=== PATIENT | female | born 1950 | race Caucasian/White ===

== ENCOUNTER 2016-06-20 10:57 | Outpatient (CLI) | payer MEDICARE, OTHER | END 2016-06-20 10:58 | disposition home or self-care (01) | DX: G47.33 Obstructive sleep apnea (adult) (pediatric) (principal) | CPT/HCPCS: 99214; G0463 ==

== ENCOUNTER 2016-08-04 13:16 | Outpatient (CLI) | payer MEDICARE, OTHER | END 2016-08-04 13:17 | disposition home or self-care (01) | DX: G47.33 Obstructive sleep apnea (adult) (pediatric) (principal) | CPT/HCPCS: 99214; G0463 ==

== ENCOUNTER 2016-08-11 13:44 | Outpatient (CLI) | payer MEDICARE, OTHER | END 2016-08-11 13:45 | disposition home or self-care (01) | DX: Z13.820 Encounter for screening for osteoporosis (principal); N95.9 Unspecified menopausal and perimenopausal disorder ==

== ENCOUNTER 2017-03-24 10:44 | Outpatient (CLI) | payer MEDICARE, OTHER ==
--- NOTE | 2017-03-24 12:42 | CT Report ---
CT CERVICAL SPINE WITHOUT CONTRAST: 03/24/2017 CLINICAL INDICATION: Neck pain, radicular symptoms. TECHNIQUE: Axial CT images of the cervical spine were obtained without contrast. Sagittal and coron al reconstructions were performed. In accordance with CT protocol optimization, one or more of the following dose reduction techniques w ere utilized for this exam: automated exposure control, adjustment of mA and/or KV based on patient size, or use of iterative reconstructive technique. FINDINGS: Image quality is degraded by motion and body habitus. The cervical vertebral bodies demon strate normal height and alignment. Extensive degenerative disc and facet disease is present. The C2-3 and C3-4 discs are unremarkable. At C4-5, there is mild disc-osteophyte, without significant spinal or foraminal narrowing. At C5-6, there is mild disc-osteophyte and uncovertebral osteophytes, producing left worse than right osseous neural foraminal narrowing. No significant spinal stenosis results. At C6-7, there is mild disc-osteophyte and uncovertebral osteophytes, producing bilateral foraminal n arrowing. No significant spinal stenosis. The C7-T1 disc is unremarkable. IMPRESSION: DEGENERATIVE CHANGES, PRODUCING OSSEOUS NEURAL FORAMINAL NARROWING AT C5-6 AND C6-7. JOB #: [id number] EXT JOB #:[id number]
--- NOTE | 2017-03-24 13:55 | XRAY Report ---
TWO VIEW CHEST: 03/24/2017 CLINICAL INDICATION: Shortness of breath, cough. COMPARISON: 12/17/2010. FINDINGS: Frontal and lateral views of the chest demonstrate an enlarged cardiac silhouette. The helga gs are clear. No effusion or pneumothorax is present. IMPRESSION: CARDIOMEGALY, BUT NO EVIDENCE OF ACUTE CARDIOPULMONARY DISEASE. JOB #: [id number] EXT JOB #:[id number]
== END 2017-03-24 10:45 | disposition home or self-care (01) ==
LOC: DI 10:44
PROVIDERS: ATTEND Physician Assistant
DX: R06.02 Shortness of breath (principal); M47.892 Other spondylosis, cervical region
CPT/HCPCS: 71020; 72125

== ENCOUNTER 2017-09-21 13:24 | Outpatient (CLI) | payer MEDICARE, OTHER | END 2017-09-21 13:25 | disposition home or self-care (01) | LOC: SC 13:24 | PROVIDERS: ATTEND Nurse Practitioner Family | DX: G47.33 Obstructive sleep apnea (adult) (pediatric) (principal) | CPT/HCPCS: 99214 ==

== ENCOUNTER 2017-09-21 19:55 | Outpatient (CLI) | payer MEDICARE, OTHER ==
--- NOTE | 2017-09-22 08:58 | Ultrasound Report ---
EXAM: BILATERAL LOWER EXTREMITY VENOUS ULTRASOUND EXAM DATE: 09/21/2017 10:31 PM. CLINICAL HISTORY: PAIN AND SWELLING. COMPARISON: None. TECHNIQUE: Real-time sonographic vascular imaging was performed by the underground repairer through the lower extremities utilizing both color-flow and Doppler spectral analysis. Multiple digital media representative static i mages were saved for review. Technically difficult study due to body habitus. FINDINGS: Right: Right mid femoral vein through popliteal vein were technically difficult to assess. Common Femoral Vein (CFV): Normal. CFV-GSV Junction: Normal. Profunda Femoral Vein (PFV): Normal. Femoral Vein (FV) Prox: Normal. Femoral Vein (FV) Mid: Normal. Femoral Vein (FV) Dist: Normal. Popliteal Vein: Normal. Posterior Tibial Veins: Not well seen. No thrombus evident. Peroneal Veins: Not well seen. No thrombus evident. Left: Left leg was technically difficult to assess. Common Femoral Vein (CFV): Normal. CFV-GSV Junction: Normal. Profunda Femoral Vein (PFV): Normal. Femoral Vein (FV) Prox: Normal. Femoral Vein (FV) Mid: Normal. Femoral Vein (FV) Dist: Normal. Popliteal Vein: Normal. Posterior Tibial Veins: Normal. Peroneal Veins: Not well seen. No thrombus evident. Other: None. IMPRESSION: No evidence for deep venous thrombosis bilaterally. [facility] Referring Provider Line: [phone] SITE ID: [id number]
== END 2017-09-21 19:56 | disposition home or self-care (01) ==
LOC: DI 19:55
PROVIDERS: ATTEND Physician Assistant
DX: M79.606 Pain in leg, unspecified (principal); R22.40 Localized swelling, mass and lump, unspecified lower limb; G47.33 Obstructive sleep apnea (adult) (pediatric)
CPT/HCPCS: 93970; 99214